=== PATIENT | female | born 1975 | race Hispanic/Latino ===

== ENCOUNTER 2022-12-19 14:22 | Outpatient (CLI) | payer BC ==
[~2022-12-19 14:22] MED LIST: Iopamidol 370 76% 100 ML VIAL ONE
== END 2022-12-19 14:23 | disposition home or self-care (01) ==
LOC: CT 14:22
PROVIDERS: ATTEND Internal Medicine
DX: R10.9 Unspecified abdominal pain (principal); N20.0 Calculus of kidney; N30.00 Acute cystitis without hematuria; N83.8 Other noninflammatory disorders of ovary, fallopian tube and broad ligament
CPT/HCPCS: 74178; Q9967

== ENCOUNTER 2024-02-13 12:53 | Outpatient (CLI) | payer BC | END 2024-02-13 12:54 | disposition home or self-care (01) | LOC: BICRAD 12:53 | PROVIDERS: ATTEND Nurse Practitioner Family | DX: R10.9 Unspecified abdominal pain (principal) | CPT/HCPCS: 74022 ==